=== PATIENT | male | born 1965 | race Caucasian/White ===

== ENCOUNTER 2017-11-27 15:25 | Emergency (ER) | payer OTHER ==
[2017-11-27 15:30] VITALS: BP 158/100
[2017-11-27] MEDS ORDERED: TDAP ADULT 0.5 ML INJ (BOOSTRIX) IM ONE (15:30)
--- NOTE | 2017-11-27 15:46 | EDPHY ---
General Time Seen by Provider: 11/27/17 15:29 Narrative: CHIEF COMPLAINT: The laceration to wrist HISTORY OF PRESENT ILLNESS: Patient presents in custody of [facility] with complaints of laceration to the left wrist. He reports this was an accident. He was working in the garden when he accidentally cut his left wrist. He states that "I think I got the artery."Moderate bleeding that has stopped with simple pressure. No numbness or tingling. No cyanosis or pallor. No difficulty moving the fingers or wrist. Tetanus is in question. He denies any intent to harm self for this. No other associated complaints or modifying factors. REVIEW OF SYSTEMS: Positive for laceration to the wrist with bleeding that has stopped. ROS otherwise negative except for elements in the HPI. PCP: None SPECIALISTS: None PAST MEDICAL HISTORY: Hep C PAST SURGICAL HISTORY: No surgical history SOCIAL HISTORY: Endorses tobacco use. Currently in custody of [facility]. FAMILY HISTORY: Noncontributory EXAMINATION: General Appearance: Alert, no distress Cardiovascular: Symmetric radial pulses 2+. There is brisk cap refill in the fingers of the left hand. Normal Guy test. Neurological: A&O, nonfocal, light and 2 point sensory symmetric in the fingers. Excellent strength of the interossei. Skin: Warm and dry, no rash. 2 cm vertical laceration over the volar, distal portion of the wrist, overlying the ulna. No pulsatile bleeding. No cyanosis, pallor Extremities: Mild tenderness of the left wrist, volar over the laceration. Range of motion of the wrist and fingers on left hand is fully intact. Psychiatric: Mood and affect normal DIFFERENTIAL DIAGNOSES: Including but not limited to laceration, laceration with tendon injury, laceration with arterial injury MDM: 3:35 p.m. Accidental laceration to the left wrist, approximately 1 cm radial to the underlying ulnar artery. There is no signs of arterial injury. He has brisk cap refill of all the fingers including a normal Guy test. Tetanus is updated during this visit. I have anesthetize the wound. He has full flexion extension of the hand and wrist. He will need suture repair. 3:55 p.m. Laceration has been repaired without difficulty. He remains neuro intact distally with good signs of perfusion. I do not appreciate any evidence of arterial injury by clinical examination. We discussed ice and elevation. We discussed daily wound care and suture removal in 10 days here. We discussed signs and symptoms of vasculature compromise, including cyanosis, pallor, numbness, tingling weakness. He will follow up here accordingly should these develop. He is discharged home stable condition to the custody of [facility]'s [facility]. PROCEDURE: Laceration repair Consent: Verbal Location: Left wrist, volar Length of repair: 2 cm Complexity: Simple Layer involvement: Single Anesthesia: Local. 1% lidocaine with epinephrine, 5 mL Irrigation: Extensive Debridement: None Procedure description: Following good anesthesia, the wound was copiously irrigated. Wound bed was explored with a sterile glove, and there is no foreign body noted. No underlying injury to the vasculature, tendon or retinaculum. Wound borders were approximated well with good hemostasis. Tolerated well without complication. I did perform an Guy test before closing the wound. Suture/Staple material: 4-0 Prolene, 3 simple interrupted sutures Wound care: Routine as discussed Suture/Staple removal: 10 Days SUPERVISION: This patient was independently evaluated without direct involvement of or examination by the attending physician. CONSULTATION: None - Objective Vital Signs: Initial Vital Signs Temperature (C) 97.7 F 11/27/17 15:28 Heart Rate 103 H 11/27/17 15:28 Respiratory Rate 16 11/27/17 15:28 Blood Pressure 158/100 H 11/27/17 15:28 O2 Sat (%) 94 11/27/17 15:28 O2 Delivery Mode Room Air Allergies/Adverse Reactions: No Known Allergies Allergy (Unverified 11/27/17 15:28) Home Medications: Medication Instructions Recorded Elavil 11/27/17 Gabapentin 11/27/17 Wellbutrin Xl 11/27/17 Medications Given: Discontinued Medications Diphtheria/Tetanus/Acell Pertussis (Boostrix) 0.5 ml IM .ONCE ONE Stop: 11/27/17 15:31 Last Admin: 11/27/17 15:34 Dose: 0.5 ml Departure - Departure Disposition: Home, Routine, Self-Care Clinical Impression: Laceration of wrist without complication Qualifiers: Encounter type: initial encounter Laterality: left Qualified Code(s): S61.512A - Laceration without foreign body of left wrist, initial encounter Condition: Good Instructions: Care For Your Stitches (ED), Laceration (ED) Additional Instructions: 1. Thin layer of bacitracin once daily for the next 2 days 2. Keep the wound covered while showering for the next 3 days 3. Daily wound care as discussed 4. Return here for suture removal in 7 days 5. Return here for signs of infection as discussed including warmth, redness, fever, drainage from the site 6. return here for increasing pain surrounding the laceration 7. Do not submerge the wound in any water, hot tub, swimming pool until sutures removed Referrals: Physician,Emergency DeptMD [Medical Doctor] - As per Instructions (Ten days for suture removal) Ubaldo Felix DO [Medical Doctor] - As per Instructions
== END 2017-11-27 16:25 | disposition home or self-care (01) ==
PROC: 0HQEXZZ Repair Left Lower Arm Skin, External Approach (ICD-10-PCS; principal; 2017-11-27)
DX: S61.512A Laceration without foreign body of left wrist, initial encounter (principal); Y93.H2 Activity, gardening and landscaping; Z23 Encounter for immunization
CPT/HCPCS: G0010